=== PATIENT | male | born 1940 | race Caucasian/White ===

== ENCOUNTER 2023-11-07 12:06 | Emergency (ER) | payer MEDICARE ==
[~2023-11-07] VITALS: Ht 177.8 cm; Wt 97.1 kg
[2023-11-07] MEDS ORDERED: CIPRO HC OTIC S10 ML RIGHT EAR (12:35)
[2023-11-07 12:48] VITALS: O2SAT 95
== END 2023-11-07 12:56 | disposition home or self-care (01) ==
LOC: FSED 12:56
DX: H66.91 Otitis media, unspecified, right ear (principal); G40.909 Epilepsy, unspecified, not intractable, without status epilepticus; R73.03 Prediabetes
CPT/HCPCS: 99283